=== PATIENT | male | born 1950 | race African-American/Black ===

== ENCOUNTER 2019-06-26 10:55 | Inpatient (IN) | payer MEDICARE ==
[2019-06-26] MEDS ORDERED: Sodium Chloride 0.9% 100 ML ONE (12:21)
[2019-06-26] MEDS ORDERED: Piperacillin/Tazobactam 4.5 GM VIAL ONE (12:21)
[2019-06-26 12:37] LABS: ALT (SGPT) 48 U/L (8-55); AST (SGOT) 21 U/L (5-34); Albumin 4.3 g/dL (3.4-4.8); Alkaline Phosphatase 138 U/L (40-110); Anion Gap 16 mmol/L (10-20); BUN (Urea Nitrogen) 15 mg/dL (8.4-25.7); Bilirubin, Total 0.4 mg/dL (0.2-1.2); Calc. Creatinine Clearance 0 mL/min (70-130); Calcium 10.3 mg/dL (7.8-10.44); Carbon Dioxide 24 mmol/L (23-31); Chloride 101 mmol/L (98-107); Estimated GFR-MDRD 75; Globulin 3.4 g/dL (2.4-3.5); Glucose 247 mg/dL (80-115); Potassium 4.7 mmol/L (3.5-5.1); Protein, Total 7.7 g/dL (5.8-8.1); Sodium 136 mmol/L (136-145)
[2019-06-26 12:46] LABS: #Basophils 0.1 thou/uL (0.0-0.2); #Eosinphils 0.1 thou/uL (0.0-0.7); #Lymphocytes 2.4 thou/uL (1.20-3.40); #Monocytes 0.3 thou/uL (0.11-0.59); #Neutrophils 5.7 thou/uL (1.40-6.50); %Eosinophils 1.5 % (0.0-10.0); %Lymphocytes 27.9 % (21.0-51.0); %Monocytes 3.7 % (0.0-10.0); %Neutrophils 65.8 % (42.0-75.0); Hemoglobin 11.5 g/dL (14.0-18.0); Mean Corpuscular HGB CONC 31.7 g/dL (32.0-36.0); Mean Corpuscular Hemoglobin 25.4 pg (27.0-31.0); Mean Corpuscular Volume 80.2 fL (78.0-98.0); Mean Platelet Volume 7.2 fL (7.4-10.4); Platelet Count 265 thou/uL (130-400); RBC Distribution Width 13.8 % (11.5-14.5); Red Blood Cell (RBC) Count 4.53 mill/uL (4.70-6.10); White Blood Cell (WBC) Count 8.6 thou/uL (4.8-10.8)
--- NOTE | 2019-06-26 12:54 | RAD ---
Radiograph right foot 3 views: 06/26/2019 HISTORY: 69-year-old male with purulent drainage from the foot after stepping on stable. FINDINGS: There is no radiopaque foreign body. No subcutaneous emphysema. No destructive osseous lesion. There are prominent erosions about the first IP joint. There are also corticated defects involving the rest of the first distal phalanx, including distal tuft. No fracture or dislocation. IMPRESSION: 1. No radiopaque foreign body. 2. Erosions at first interphalangeal joint. 3. Prominent multiple osseous defects of first distal phalanx. Etiology uncertain.
[2019-06-26 14:33] VITALS: BMI 35.2
[2019-06-26] MEDS: Atorvastatin Calcium 40 MG TAB PO SCH (21:05)
[2019-06-26] MEDS ORDERED: Ondansetron ODT 4 MG TAB SL PRN (21:23)
[2019-06-26] MEDS ORDERED: Sodium Chloride 0.9% 1,000 ML IV SCH (21:23)
[2019-06-26] MEDS ORDERED: Acetaminophen 325 MG TAB PO PRN (21:23)
[2019-06-26] MEDS ORDERED: Ondansetron PF 4 MG/2 ML Vial IVP PRN (21:23)
[2019-06-26] MEDS ORDERED: Calcium Carbonate 500 MG ChewTAB PO PRN (21:30)
[2019-06-26] MEDS ORDERED: Famotidine 20 MG TAB PO SCH (21:45)
[2019-06-26] MEDS: Piperacillin/Tazobactam 4.5 GM in Sodium Chloride 0.9% 100 ML IVPB SCH (21:57)
[2019-06-27] MEDS: Vancomycin HCl 1 GM in Sodium Chloride 0.9% 250 ML 250 ML IVPB SCH ×3 (01:24→14:05)
[2019-06-27] MEDS: Piperacillin/Tazobactam 4.5 GM in Sodium Chloride 0.9% 100 ML IVPB SCH ×4 (04:43→21:57)
[2019-06-27 05:35] LABS: Anion Gap 14 mmol/L (10-20); BUN (Urea Nitrogen) 10 mg/dL (8.4-25.7); Calc. Creatinine Clearance 132 mL/min (70-130); Calcium 9.5 mg/dL (7.8-10.44); Carbon Dioxide 22 mmol/L (23-31); Chloride 106 mmol/L (98-107); Estimated GFR-MDRD Greater than 90; Glucose 207 mg/dL (80-115); Potassium 4.4 mmol/L (3.5-5.1); Sodium 138 mmol/L (136-145)
[2019-06-27 05:59] LABS: Hemoglobin 10.2 g/dL (14.0-18.0); Red Blood Cell (RBC) Count 4.04 mill/uL (4.70-6.10); White Blood Cell (WBC) Count 6.9 thou/uL (4.8-10.8)
[2019-06-27 06:00] LABS: Band 1 % (5-11); Eosinophils 2 % (0-10); Hypochromia SLIGHT = 6-15 cells (100X) (0-5/hpf); Lymphocytes 34 % (21-51); MDiff Complete? YES; Mean Corpuscular HGB CONC 31.5 g/dL (32.0-36.0); Mean Corpuscular Hemoglobin 25.3 pg (27.0-31.0); Mean Corpuscular Volume 80.4 fL (78.0-98.0); Mean Platelet Volume 6.9 fL (7.4-10.4); Monocytes 7 % (0-10); Neutrophil 55 % (42-75); Platelet Count 255 thou/uL (130-400); Platelet Morphology Comment Appears Adequate; RBC Distribution Width 13.7 % (11.5-14.5)
[2019-06-27] MEDS ORDERED: metFORMIN 500 MG TAB PO SCH (08:00)
[2019-06-27] MEDS ORDERED: Prevnar 13-Val Conj/PF 0.5 ML SYRINGE IM ONE (09:00)
[2019-06-27] MEDS ORDERED: Carvedilol 6.25 MG TAB PO SCH (09:00)
[2019-06-27] MEDS ORDERED: FLU VACC TS2019-20(65YR UP)/PF 180 MCG/0.5 ML SYRINGE IM ONE (09:00)
[2019-06-27] MEDS: Potassium Chloride 20 MEQ TAB PO SCH (09:05)
[2019-06-27] MEDS: Aspirin 325 MG TAB PO SCH (09:05)
[2019-06-27] MEDS: Famotidine 20 MG TAB PO SCH ×2 (09:05→21:51)
[2019-06-27] MEDS: Losartan Potassium 50 MG TAB PO SCH (09:05)
[2019-06-27] MEDS: Furosemide 40 MG TAB PO SCH ×2 (09:06→13:41)
[2019-06-27] MEDS ORDERED: Dextrose 50% Abboject 50 ML SYRINGE SLOW IVP PRN (12:39)
[2019-06-27] MEDS ORDERED: HumaLOG 300 UNITS/3 ML VIAL SC PRN (12:39)
[2019-06-27] MEDS ORDERED: Dextrose 5% in Water 1,000 ML IV PRN (12:39)
[2019-06-27] MEDS: HumaLOG 300 UNITS/3 ML VIAL SC PRN (13:41)
[2019-06-27] MEDS: Vancomycin HCl 750 MG in Sodium Chloride 0.9% 250 ML 250 ML IVPB SCH (15:04)
[2019-06-27] MEDS: Mometasone Furoate 120 PUFF 220 MCG INH SCH (17:29)
[2019-06-27] MEDS ORDERED: Insulin Glargine 30 UNITS in Pre-Filled Syringe 1 EACH SC SCH (21:00)
[2019-06-27] MEDS ORDERED: Lantus 1000 UNITS/10 ML VIAL SC SCH (21:30)
--- NOTE | 2019-06-27 21:30 | HP ---
CHIEF COMPLAINT: Infected toe. HISTORY OF PRESENT ILLNESS: Mr. Rocha is a 69-year-old -[place]ian male with past medical history of type 2 diabetes, insulin dependent, with ischemic cardiomyopathy and diabetic neuropathy, who presented in the ambulatory setting before the break on June 23 with complaint that he had removed the staple from his right great toe that had apparently penetrated through his shoe. The patient reports he was not sure how long it had been there, because he could not feel it, but he removed it and rinsed it out. He dressed the wound at home for a few days before coming into the clinic. Here, we rinsed it out and expressed some pus. He had some erythema and that was beginning to move proximally up the right lower extremity and he was recommended inpatient IV antibiotics with admission. He declined that and assigned declination of care, was given a dose of Rocephin and placed on Keflex and Bactrim over the break with precautions. He followed up in the clinic yesterday and saw the nurse practitioner here with some slight improvement of some swelling that he had had in the right lower extremity, but continued redness and worsening of the toe wound with expression of pus with pressure. He was triaged through the emergency room and Dr. Paredes called me after imaging was performed noting changes of the right great toe on x-ray. He had stated that he would have Podiatry see the patient's stay over here yesterday and we could then possibly admit him to the floor with their recommendations. We admitted him for IV antibiotics, which he has been given Zosyn and vancomycin. Unfortunately, Podiatry was not contacted before they were done seeing the patient and will be back for a week. He denies any current complaints. He already has preliminary wound culture results. The patient has a history of cardiomyopathy with most recent echocardiogram documented in [email or web address]. He has not had any shortness of breath, increased dyspnea on exertion, and the size of the right lower extremity increase and right lower extremity edema per his reports. He has been compliant with all his medications. He also has insulin-dependent diabetes and his last A1c was close to goal here in clinic. He was recently changed over from Lantus to Soliqua. He does not recall the dose, but says that it was the starting dose from last week. PAST MEDICAL HISTORY: 1. Type 2 diabetes. 2. Hypertension. 3. Hard of hearing. 4. Coronary artery disease. 5. Congestive heart failure. 6. Hyperlipidemia. 7. Neuropathy. PAST SURGICAL HISTORY: Denies. MEDICATIONS: 1. Aspirin 325 mg p.o. daily. 2. Atorvastatin 40 mg p.o. daily. 3. Metformin 1000 mg one p.o. daily. 4. Furosemide 40 mg p.o. b.i.d. 5. Potassium chloride 1 p.o. daily, 20 mEq. 6. Losartan 50 mg one p.o. daily. 7. Carvedilol 6.25 mg p.o. daily. 8. Fluticasone 50 mcg two sprays once a day. 9. Soliqua 30 units subcu q.a.m. ALLERGIES: CARBONATED BEVERAGES. NO KNOWN DRUG ALLERGIES. FAMILY HISTORY: Noncontributory. SOCIAL HISTORY: Denies alcohol, tobacco, or illicit drug use. He is . REVIEW OF SYSTEMS: CONSTITUTIONAL: Denies fever, chills, fatigue, or weakness. HEENT: Denies vision changes. Positive hard hearing. Denies rhinorrhea, changes in vision, sinus congestion, or sore throat. CARDIOVASCULAR: Denies chest pain, palpitations, orthopnea, or PND. RESPIRATORY: Denies wheezing, shortness of breath, cough, or hemoptysis. GI: Denies nausea, vomiting, diarrhea, constipation, melena, or hematochezia. GENITOURINARY: Denies dysuria or urinary frequency. No gross hematuria. LYMPHATIC: Has had some swelling of the right lower extremity. HEMATOLOGIC: Denies bleeding or easy bruising. PHYSICAL EXAMINATION: VITAL SIGNS: Temperature 98.2, pulse 84, respirations 16, O2 saturation 99% on room air, and blood pressure 136/77. GENERAL: Well-developed, well-nourished -Armenian male, alert and oriented x3. No acute distress. HEENT: Normocephalic and atraumatic. Pupils are equal, round, and reactive to light and accommodation, extraocular muscles intact. Nares are patent without discharge. Tongue protrudes in the midline. NECK: Supple without lymphadenopathy, thyromegaly, JVD, or bruit. HEART: Regular rate and rhythm. Normal S1 and S2. No murmurs, clicks, rubs, or gallops. LUNGS: Clear to auscultation with good air entry bilaterally. No crackles or wheezes. ABDOMEN: Positive bowel sounds in all 4 quadrants. Soft, nontender, and nondistended. No masses, guarding, or rebound tenderness. EXTREMITIES: No cyanosis, clubbing, or edema of the left lower extremity. Trace ankle edema. The right lower extremity with erythema to the anterior aspect that extends to the dorsum of the right foot and to the right great toe with a wound to the plantar aspect of the right great toe with blanching of the skin without pressure and with pressure expression of 1 to 2 mL of hemorrhagic/purulent exudate. NEUROLOGIC: Cranial nerves 2 through 12 grossly intact. No focal deficits. LABORATORY DATA: White count 8.6 with 65% neutrophils and 28% lymphocytes on the and repeat today is 6.9; hemoglobin on admission 11.5 and today 10.2; hematocrit on admission 36.4, today 32.5; and platelets 265 on admission, 255 today. Chemistry profile; sodium 138, potassium 4.4, chloride 104, bicarb 22, BUN 10, creatinine 0.87, glucose 207, and calcium 9.5. B-type natriuretic peptide 15.7. Bacterial culture from the toe growing gram-negative jonathan. Blood culture x2 negative to date. IMAGING STUDIES: X-ray of the foot from yesterday shows no radiopaque foreign body, erosions at the first interphalangeal joint and prominent multiple osseous defects of first distal phalanx. ASSESSMENT AND PLAN: 1. Infected right great toe puncture wound with ascending right lower extremity cellulitis and probable osteomyelitis of the right great toe. The patient has been admitted as blood cultures and wound culture pending. He was placed on Zosyn and vancomycin in the ER and we will continue this. We will have Pharmacy manage vancomycin troughs and adjust to achieve goal of 15. I called and talked with Dr. Marshall regarding options with Infectious Disease. He did indicate to me that Podiatry usually would take a more conservative route, but that these are generally going to require surgical intervention and given the findings likely do not have to confirm with more extensive imaging at this time. We did discuss possible transfer for general surgery consultation, but he indicated that given it being Sunday afternoon on a holiday that the general surgeons are unavailable to do a consult until Sunday, so he recommended that we try to transfer him then. He will need a PICC line placed if he is to have long-term IV antibiotics. So until then, I will follow up the wound culture and narrow down his antibiotic regimen accordingly. Option 2 would be to have a PICC line placed and try to arrange for IV antibiotics for 6 week, monitoring troughs and getting a General Surgery or Podiatry consult as an outpatient. This still would require transfer [facility] to [facility] for the PICC placement. Therefore, I feel the best option is to keep him here over the weekend and get his diabetes under control and follow the cultures. 2. Insulin-dependent diabetes mellitus. We will place him on 30 units of Lantus and continue his regimen here when I hold his metformin 48 hours prior to his transfer in case he needs contrast studies. We will order Accu-Cheks before meals and at bedtime with sliding scale insulin correction algorithm. 3. Cardiomyopathy. We will confirm with his clinic chart his last recorded ejection fraction. Continue his beta-elian, angiotensin receptor elian, aspirin, and diuretic therapy. He does not appear to be volume overloaded at this time. 4. Hyperlipidemia. We will continue his statin therapy. 5. Coronary artery disease. Continue medications as above. 6. Prophyl[address]. [address] the patient on Pepcid and place SCDs. CODE STATUS: The patient desires full code. Job ID: [id number]
[2019-06-27] MEDS: Atorvastatin Calcium 40 MG TAB PO SCH (21:50)
[2019-06-27] MEDS: Carvedilol 6.25 MG TAB PO SCH (21:51)
[2019-06-28] MEDS: Vancomycin HCl 1 GM in Sodium Chloride 0.9% 250 ML 250 ML IVPB SCH ×2 (02:06→14:03)
[2019-06-28] MEDS: Vancomycin HCl 750 MG in Sodium Chloride 0.9% 250 ML 250 ML IVPB SCH ×2 (03:18→16:07)
[2019-06-28] MEDS: Piperacillin/Tazobactam 4.5 GM in Sodium Chloride 0.9% 100 ML IVPB SCH ×4 (04:24→21:03)
[2019-06-28] MEDS: Famotidine 20 MG TAB PO SCH ×2 (08:45→21:00)
[2019-06-28] MEDS: Carvedilol 6.25 MG TAB PO SCH ×2 (08:46→21:00)
[2019-06-28] MEDS: Furosemide 40 MG TAB PO SCH ×2 (08:49→14:02)
[2019-06-28] MEDS: Aspirin 325 MG TAB PO SCH (08:49)
[2019-06-28] MEDS: Losartan Potassium 50 MG TAB PO SCH (08:49)
[2019-06-28] MEDS: Potassium Chloride 20 MEQ TAB PO SCH (08:49)
[2019-06-28] MEDS: HumaLOG 300 UNITS/3 ML VIAL SC PRN ×3 (08:50→17:43)
[2019-06-28] MEDS: Mometasone Furoate 120 PUFF 220 MCG INH SCH (17:35)
[2019-06-28] MEDS ORDERED: Lantus 1000 UNITS/10 ML VIAL SC SCH ×2 (21:00)
[2019-06-28] MEDS: Atorvastatin Calcium 40 MG TAB PO SCH (21:01)
[2019-06-29 01:23] LABS: Vancomycin, Trough 12.7 ug/mL
[2019-06-29] MEDS: Vancomycin HCl 750 MG in Sodium Chloride 0.9% 250 ML 250 ML IVPB SCH ×2 (02:41→15:18)
[2019-06-29] MEDS: Vancomycin HCl 1 GM in Sodium Chloride 0.9% 250 ML 250 ML IVPB SCH ×2 (02:41→13:40)
[2019-06-29] MEDS: Piperacillin/Tazobactam 4.5 GM in Sodium Chloride 0.9% 100 ML IVPB SCH ×4 (04:30→21:25)
[2019-06-29] MEDS: HumaLOG 300 UNITS/3 ML VIAL SC SCH ×3 (07:39→17:27)
[2019-06-29] MEDS: HumaLOG 300 UNITS/3 ML VIAL SC PRN ×3 (07:40→17:27)
[2019-06-29] MEDS: Losartan Potassium 50 MG TAB PO SCH (09:31)
[2019-06-29] MEDS: Carvedilol 6.25 MG TAB PO SCH ×2 (09:31→21:30)
[2019-06-29] MEDS: Potassium Chloride 20 MEQ TAB PO SCH (09:31)
[2019-06-29] MEDS: Furosemide 40 MG TAB PO SCH ×2 (09:31→13:40)
[2019-06-29] MEDS: Famotidine 20 MG TAB PO SCH ×2 (09:34→21:31)
[2019-06-29] MEDS: Aspirin 325 MG TAB PO SCH (09:34)
[2019-06-29] MEDS: Mometasone Furoate 120 PUFF 220 MCG INH SCH (15:22)
[2019-06-29] MEDS ORDERED: HumaLOG 300 UNITS/3 ML VIAL SC SCH (17:48)
[2019-06-29] MEDS ORDERED: Lantus 1000 UNITS/10 ML VIAL SC SCH (17:49)
[2019-06-29] MEDS: Atorvastatin Calcium 40 MG TAB PO SCH (21:31)
[2019-06-30] MEDS: Vancomycin HCl 1 GM in Sodium Chloride 0.9% 250 ML 250 ML IVPB SCH (02:13)
[2019-06-30] MEDS: Vancomycin HCl 750 MG in Sodium Chloride 0.9% 250 ML 250 ML IVPB SCH (03:20)
[2019-06-30] MEDS: Piperacillin/Tazobactam 4.5 GM in Sodium Chloride 0.9% 100 ML IVPB SCH ×2 (04:45→10:07)
[2019-06-30] MEDS: Carvedilol 6.25 MG TAB PO SCH (08:02)
[2019-06-30] MEDS: Aspirin 325 MG TAB PO SCH (08:02)
[2019-06-30] MEDS: Furosemide 40 MG TAB PO SCH (08:04)
[2019-06-30] MEDS: Famotidine 20 MG TAB PO SCH (08:04)
[2019-06-30] MEDS: Losartan Potassium 50 MG TAB PO SCH (08:04)
[2019-06-30] MEDS: Potassium Chloride 20 MEQ TAB PO SCH (08:04)
[2019-06-30] MEDS: HumaLOG 300 UNITS/3 ML VIAL SC PRN (08:05)
[2019-06-30 11:31] VITALS: BP 141/65; TEMP 98.2
--- NOTE | 2019-07-02 04:32 | PQF ---
[employer] Log [employer] Crystal Reports Winform ViewerViviane BEVERLY KRISTEL DO [id number] CLINICAL DOCUMENTATION CLARIFICATION FORM: POST DISCHARGE Addendum to original discharge summary date: ____ Late entry note date: __ DATE: 07/02/2019 ATTN:JUNE VALDES DO Please exercise your independent, professional judgment in responding to the clarification form. Clinical indicators are provided on the bottom of this form for your review Please check appropriate box(s): HEART FAILURE: A. TYPE: [ ] Systolic / HFrEF [ ] Diastolic / HFpEF [ ] Combined Systolic / Diastolic B. ACUITY [ ] Acute [ ] Acute on Chronic [ ] Chronic [ ] Other diagnosis [ ] Unable to determine In addition, please specify: Present on Admission (POA): [ ] Yes [ ] No [ ] Unable to determine For continuity of documentation, please document condition throughout progress notes and discharge summary. Thank You. CLINICAL INDICATORS - SIGNS / SYMPTOMS / LABS Congestive heart failure - Documented in H&P on 06/26 by JUNE VALDES DO He does not appear to be volume overload - Documented in H&P on 06/26 by JUNE VALDES DO Hx of Ejection fraction 40-45% - Physician office H&P RISKS: Ischemic Cardiomyopathy - Documented in H&P on 06/26 by JUNE VALDES DO HTN CAD TREATMENTS: Furosemide [Lasix] 40 mg PO - Medication Report [employer] Log [employer] Reports Winform Viewer (This form is maintained as a part of the permanent medical record) 2014 [employer]. All Rights Reserved [email or web address] [not provided] MTDD
== END 2019-06-30 11:48 | disposition short-term general hospital (02) | DRG 638 ==
LOC: BURERS 10:55 → BURMED 13:19
PROVIDERS: ADMIT Family Medicine; ATTEND Family Medicine
DX: E11.69 Type 2 diabetes mellitus with other specified complication (principal); M86.8X6 Other osteomyelitis, lower leg; L03.115 Cellulitis of right lower limb; Z79.4 Long term (current) use of insulin; E11.40 Type 2 diabetes mellitus with diabetic neuropathy, unspecified; I25.10 Atherosclerotic heart disease of native coronary artery without angina pectoris; I50.9 Heart failure, unspecified; E78.5 Hyperlipidemia, unspecified; Z79.82 Long term (current) use of aspirin; Z79.84 Long term (current) use of oral hypoglycemic drugs; Z79.899 Other long term (current) drug therapy; Z88.8 Allergy status to other drugs, medicaments and biological substances; L03.031 Cellulitis of right toe; I11.0 Hypertensive heart disease with heart failure; I25.5 Ischemic cardiomyopathy
CPT/HCPCS: 36415; 36416; 80048; 80053; 80202; 83605; 83880; 85025; 87040; 87070; 87077; 87186; 87205; 90471; 90670; G0009; J1815; J2543; J3370; J3490; J7050

== ENCOUNTER 2019-12-12 15:14 | Outpatient (CLI) | payer MEDICARE, MEDICAID ==
--- NOTE | 2019-12-12 21:21 | RAD ---
LEFT KNEE FOUR VIEWS: 12/12/19 Comparison is made with a prior study of 10/26/14. The appearance of the knee is similar over time. Osteoarthritis is present consisting of medial joint space narrowing, osteophytes, and slight sclerosis of some of the bone. The differences in the inter claudia are minimal. No joint effusion or fracture was seen. IMPRESSION: Osteoarthritis with minimal change since the prior exam. POS: HOME
== END 2019-12-12 15:15 | disposition home or self-care (01) ==
LOC: BURRAD 15:14
PROVIDERS: ATTEND Family Medicine
DX: M25.562 Pain in left knee (principal); G89.29 Other chronic pain; M17.12 Unilateral primary osteoarthritis, left knee

== ENCOUNTER 2020-09-10 16:02 | Emergency (ER) | payer MEDICARE, MEDICAID | END 2020-09-10 16:50 | disposition short-term general hospital (02) | LOC: BURERS 16:02 | DX: N50.811 Right testicular pain (principal); I11.0 Hypertensive heart disease with heart failure; I50.9 Heart failure, unspecified; E11.42 Type 2 diabetes mellitus with diabetic polyneuropathy; E78.5 Hyperlipidemia, unspecified; E78.00 Pure hypercholesterolemia, unspecified; Z79.899 Other long term (current) drug therapy; Z79.82 Long term (current) use of aspirin; Z79.84 Long term (current) use of oral hypoglycemic drugs | CPT/HCPCS: 99284 ==

== ENCOUNTER 2024-04-02 10:31 | Emergency (ER) | payer MEDICARE, MEDICAID ==
[2024-04-02 11:06] LABS: #Basophils 0.1 thou/uL (0.0-0.2); #Eosinphils 0.1 thou/uL (0.0-0.7); #Lymphocytes 1.5 thou/uL (1.20-3.40); #Monocytes 0.7 thou/uL (0.11-0.59); #Neutrophils 3.8 thou/uL (1.40-6.50); %Eosinophils 1.2 % (0.0-10.0); %Lymphocytes 24.2 % (21.0-51.0); %Monocytes 11.3 % (0.0-10.0); %Neutrophils 61.4 % (42.0-75.0); Hematocrit 34.1 % (42.0-52.0); Hemoglobin 9.8 g/dL (14.0-18.0); Mean Corpuscular HGB CONC 28.9 g/dL (32.0-36.0); Mean Corpuscular Hemoglobin 22.2 pg (27.0-31.0); Mean Platelet Volume 8.1 fL (7.4-10.4); Platelet Count 323 10x3/uL (130-400); RBC Distribution Width 19.4 % (11.5-14.5); Red Blood Cell (RBC) Count 4.42 mill/uL (4.70-6.10); White Blood Cell (WBC) Count 6.1 10x3/uL (4.8-10.8)
[2024-04-02] MEDS ORDERED: Furosemide 40 MG (4 mL) VIAL ONE (11:06)
[2024-04-02 11:19] LABS: ALT (SGPT) 56 U/L (8-55); AST (SGOT) 46 U/L (5-34); Albumin 3.4 g/dL (3.4-4.8); Alkaline Phosphatase 245 U/L (40-110); Anion Gap 16 mmol/L (10-20); BUN (Urea Nitrogen) 34 mg/dL (8.4-25.7); Bilirubin, Total 0.7 mg/dL (0.2-1.2); Calc. Creatinine Clearance 0 mL/min (70-130); Calcium 9.7 mg/dL (7.8-10.44); Carbon Dioxide 19 mmol/L (23-31); Chloride 110 mmol/L (98-107); Estimated GFR 29; Globulin 3.5 g/dL (2.4-3.5); Potassium 4.6 mmol/L (3.5-5.1); Protein, Total 6.9 g/dL (5.8-8.1); Sodium 140 mmol/L (136-145)
[2024-04-02] MEDS ORDERED: Acetaminophen 325 MG TAB ONE ×2 (11:21→19:10)
[2024-04-02 11:22] LABS: Anisocytosis SLIGHT = 6-15 cells (100X) (0-5/hpf); Elliptocytes SLIGHT = 2-5 cells (100X) (0-1/hpf); Hypochromia SLIGHT = 6-15 cells (100X) (0-5/hpf); MDiff Complete? YES; Platelet Adequacy Comment Appears Adequate; Poikilocytosis SLIGHT = 6-15 cells (100X) (0-5/hpf); Schistocytes SLIGHT = 2-5 cells (100X) (0-1/hpf)
[2024-04-02 11:29] LABS: Glucose 50 mg/dL (83-110)
[2024-04-02] MEDS ORDERED: Amiodarone 200 MG TAB PO SCH (12:00)
[2024-04-02] MEDS ORDERED: Apixaban 5 MG TAB PO SCH (12:00)
== END 2024-04-02 19:58 | disposition short-term general hospital (02) ==
LOC: BURERS 10:31
DX: S81.802A Unspecified open wound, left lower leg, initial encounter (principal); S81.801A Unspecified open wound, right lower leg, initial encounter; E11.649 Type 2 diabetes mellitus with hypoglycemia without coma; I11.0 Hypertensive heart disease with heart failure; I50.9 Heart failure, unspecified; N17.9 Acute kidney failure, unspecified; I48.91 Unspecified atrial fibrillation; E11.42 Type 2 diabetes mellitus with diabetic polyneuropathy; E78.00 Pure hypercholesterolemia, unspecified; I25.10 Atherosclerotic heart disease of native coronary artery without angina pectoris; X58.XXXA Exposure to other specified factors, initial encounter; Z79.4 Long term (current) use of insulin; Z55.6 Problems related to health literacy; Z87.891 Personal history of nicotine dependence; Z79.01 Long term (current) use of anticoagulants; Z79.84 Long term (current) use of oral hypoglycemic drugs; Z79.899 Other long term (current) drug therapy
CPT/HCPCS: 36415; 36416; 71045; 80053; 83880; 85025; 93005; 96374; J1940

== ENCOUNTER 2024-04-10 19:27 | Inpatient (IN) | payer MEDICARE, MEDICAID ==
[2024-04-10] MEDS ORDERED: Acetaminophen 500 MG TAB PO PRN (21:34)
[2024-04-10] MEDS ORDERED: Bisacodyl 10 MG SUPP PR PRN (21:37)
[2024-04-10] MEDS ORDERED: Acetaminophen 325 MG TAB PO PRN (21:37)
[2024-04-10] MEDS ORDERED: Albuterol 200 PUFF (6.7GM INHALER) INH PRN (21:42)
[2024-04-10 21:45] VITALS: BMI 33.0
[2024-04-11 05:50] LABS: #Basophils 0.1 thou/uL (0.0-0.2); #Eosinophils 0.1 thou/uL (0.0-0.7); #Lymphocytes 1.4 thou/uL (1.20-3.40); #Monocytes 0.6 thou/uL (0.11-0.59); #Neutrophils 5.2 thou/uL (1.40-6.50); %Basophils 0.8 % (0.0-1.0); %Eosinophils 1.1 % (0.0-10.0); %Monocytes 7.7 % (0.0-10.0); %Neutrophils 71.4 % (42.0-75.0); Hematocrit 29.6 % (42.0-52.0); Hemoglobin 8.8 g/dL (14.0-18.0); Mean Corpuscular HGB CONC 29.7 g/dL (32.0-36.0); Mean Corpuscular Hemoglobin 22.5 pg (27.0-31.0); Mean Corpuscular Volume 75.6 fl (78.0-98.0); Mean Platelet Volume 6.8 fL (7.4-10.4); Platelet Count 258 10x3/uL (130-400); RBC Distribution Width 18.4 % (11.5-14.5); Red Blood Cell (RBC) Count 3.92 mill/uL (4.70-6.10); White Blood Cell (WBC) Count 7.3 10x3/uL (4.8-10.8)
[2024-04-11 06:05] LABS: Anion Gap 17 mmol/L (10-20); BUN (Urea Nitrogen) 25 mg/dL (8.4-25.7); Calc. Creatinine Clearance 62 mL/min (70-130); Calcium 8.8 mg/dL (7.8-10.44); Carbon Dioxide 19 mmol/L (23-31); Chloride 110 mmol/L (98-107); Estimated GFR 45; Glucose 133 mg/dL (83-110); Potassium 4.3 mmol/L (3.5-5.1); Sodium 142 mmol/L (136-145)
[2024-04-11 08:34] VITALS: BMI 33.0
[2024-04-11] MEDS: Brimonidine Tartrate 0.2% Ophth Soln 5 ml Bottle EA EYE SCH (08:51)
[2024-04-11] MEDS: Lantus 1000 UNITS/10 ML VIAL SC SCH (08:53)
[2024-04-11] MEDS: Multivitamin W/ Minerals 1 TAB PO SCH (08:54)
[2024-04-11] MEDS: Torsemide 20 MG TAB PO SCH (08:54)
[2024-04-11] MEDS: Ezetimibe 10 MG TAB PO SCH (08:54)
[2024-04-11] MEDS: Spironolactone 25 MG TAB PO SCH (08:54)
[2024-04-11] MEDS: Atorvastatin Calcium 40 MG TAB PO SCH (08:54)
[2024-04-11] MEDS: Memantine 5 MG TAB PO SCH (08:54)
[2024-04-11] MEDS: hydrALAZINE 25 MG TAB PO SCH (08:55)
[2024-04-11] MEDS: Ferrous Sulfate 325 MG TAB PO SCH (08:55)
[2024-04-11] MEDS: Empagliflozin 10 MG TAB PO SCH (08:55)
[2024-04-11] MEDS: Amiodarone 200 MG TAB PO SCH (08:55)
[2024-04-11] MEDS: Apixaban 5 MG TAB PO SCH (08:55)
[2024-04-11] MEDS: Donepezil HCl 10 MG TAB PO SCH (20:21)
[2024-04-14] MEDS: Melatonin 3 MG TAB PO PRN (21:20)
[2024-04-15] MEDS: Senokot S 8.6-50 MG TAB PO PRN (21:52)
[2024-04-15] MEDS: Bisacodyl 5 MG TAB PO PRN (21:52)
[2024-04-17] MEDS: Loratadine 10 MG TAB PO PRN (12:44)
[2024-04-18 05:05] LABS: Hematocrit 31.9 % (42.0-52.0); Hemoglobin 9.5 g/dL (14.0-18.0); Platelet Count 307 10x3/uL (130-400)
[2024-04-18 06:37] VITALS: TEMP 98.1
[2024-04-18 09:35] VITALS: BP 120/78
[2024-04-18] MEDS: Lantus 1000 UNITS/10 ML VIAL SC SCH (10:53)
[2024-04-19] MEDS ORDERED: Lantus 1000 UNITS/10 ML VIAL SC SCH (09:00)
== END 2024-04-18 14:11 | disposition home or self-care (01) | DRG 945 ==
LOC: BURMED 20:15
PROVIDERS: ADMIT Family Medicine; ATTEND Nurse Practitioner
PROC: F07Z9ZZ Gait Training/Functional Ambulation Treatment (ICD-10-PCS; principal; 2024-04-14)
DX: R53.81 Other malaise (principal); I13.0 Hypertensive heart and chronic kidney disease with heart failure and stage 1 through stage 4 chronic kidney disease, or unspecified chronic kidney disease; I50.32 Chronic diastolic (congestive) heart failure; N18.4 Chronic kidney disease, stage 4 (severe); I25.10 Atherosclerotic heart disease of native coronary artery without angina pectoris; Z87.891 Personal history of nicotine dependence; I48.91 Unspecified atrial fibrillation; E11.22 Type 2 diabetes mellitus with diabetic chronic kidney disease; G47.33 Obstructive sleep apnea (adult) (pediatric)
CPT/HCPCS: 36415; 36416; 80048; 85014; 85018; 85025; 85049; 97602; J1815

== ENCOUNTER 2024-06-13 08:37 | Emergency (ER) | payer MEDICARE ==
[2024-06-13] MEDS ORDERED: Magnesium Citrate 300 ML BOT ONE (09:59)
== END 2024-06-13 10:12 | disposition home or self-care (01) ==
LOC: BURERS 08:37
DX: K59.00 Constipation, unspecified (principal); E11.9 Type 2 diabetes mellitus without complications; I11.0 Hypertensive heart disease with heart failure; I50.9 Heart failure, unspecified; Z79.4 Long term (current) use of insulin; Z87.891 Personal history of nicotine dependence
CPT/HCPCS: 74022; 99284